=== PATIENT | male | born 1995 | race Caucasian/White ===

== ENCOUNTER 2020-07-18 14:14 | Emergency (ER) | payer OTHER ==
[2020-07-18] MEDS ORDERED: levETIRAcetam 500 MG in Sodium Chloride 0.9% 100 ML IV STA (14:27)
[2020-07-18] MEDS ORDERED: fentaNYL 50 MCG/ML SDV IVPUSH ONE (14:29)
[2020-07-18] MEDS ORDERED: fentaNYL 100 MCG/2 ML SDV IVPUSH PRN (14:33)
[2020-07-18] MEDS ORDERED: fentaNYL 100 MCG/2 ML SDV ONE (14:33)
[2020-07-18] MEDS ORDERED: Ondansetron 4 MG/2 ML SDV ONE (14:40)
[2020-07-18] MEDS ORDERED: Ondansetron 4 MG/2 ML SDV IVPUSH ONE (14:40)
[2020-07-18 14:43] LABS: PTT,PARTIAL THROMBOPLSTIN TIME 21.2 SEC (24.5-32.8)
[2020-07-18 14:45] LABS: CHLORIDE,CL 106 mmol/L (98-107); SODIUM,NA 141 mmol/L (136-145)
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
== END 2020-07-18 15:13 ==
LOC: LL.ED 14:14
DX: S80.11XA Contusion of right lower leg, initial encounter (principal); G40.909 Epilepsy, unspecified, not intractable, without status epilepticus; V57.5XXA Driver of pick-up truck or van injured in collision with fixed or stationary object in traffic accident, initial encounter
CPT/HCPCS: 36415; 71045; 80053; 80307; 82150; 85025; 85610; 85730; 96365; 96374; 96375; 99284; 99285-25; J1953; J2405; J3010